=== PATIENT | male | born 1950 | race Caucasian/White ===

== ENCOUNTER → 2019-01-05 | Outpatient (CLI) | payer MEDICARE, BC ==
[~2019-01-05] MED LIST: ATOR40TA78 PO; CLOB15CR19 TP; CYCL-259 PO; FENO135C PO; FENO135C4 PO; HYDR-3307 PO; LATA2.5D3 EACHEYE; LISI1TAB5 PO; METF500T17 PO; METO50TA82 PO; MONT10TA9 PO; MUPIROCIN; TIOT18CA INH; TRAZ50TA66 PO; lisinopril PO; metformin PO; will bring list
== END | disposition home or self-care (01) ==
LOC: CVU 09:15
PROVIDERS: ATTEND Surgery Vascular Surgery
DX: I65.23 Occlusion and stenosis of bilateral carotid arteries (principal); I77.1 Stricture of artery; I70.90 Unspecified atherosclerosis; I10 Essential (primary) hypertension; E78.5 Hyperlipidemia, unspecified; E11.9 Type 2 diabetes mellitus without complications; Z95.820 Peripheral vascular angioplasty status with implants and grafts; Z87.891 Personal history of nicotine dependence
CPT/HCPCS: 93880; 93922; 93925